=== PATIENT | male | born 1935 | race Caucasian/White ===

== ENCOUNTER 2020-01-31 00:03 | Outpatient (CLI) | payer MEDICARE, SELFPAY ==
[2020-01-31 18:02] LABS: SARS-CoV-2 RNA PCR Negative
== END 2020-01-31 00:04 | disposition home or self-care (01) ==
LOC: ANHCOVIDDT 00:03
PROVIDERS: PCP Internal Medicine; Visit Provider Internal Medicine Gastroenterology
DX: Z01.812 Encounter for preprocedural laboratory examination (principal); Z20.828 Contact with and (suspected) exposure to other viral communicable diseases
CPT/HCPCS: 87635; C9803; U0003

== ENCOUNTER 2020-02-03 01:34 | Day surgery (SDC) | payer MEDICARE, SELFPAY ==
[2020-01-24 14:18] VITALS: BMI 63.2
[2020-02-03 08:05] VITALS: BP 149/101; PULSE 85; RESP 18; TEMP 36.7; O2SAT 97
[2020-02-03] MEDS: LACTATED RINGERS 1,000 ML 150 ML IV CONT (08:30)
--- NOTE | 2020-02-03 08:31 | WPDGICN ---
Assessment and Plan Assessment and plan (1) Epigastric abdominal pain: Code(s): R10.13 - Epigastric pain Status: Acute Assessment and Plan: Patient complains of epigastric pain. He does have a distant history of peptic ulcer disease symptoms have currently been poorly responsive to antacids. Plan is for EGD to assess more thoroughly. Continue Tagamet and liquid antacids as needed for the immediate future. (2) Exocrine pancreatic insufficiency: Code(s): K86.81 - Exocrine pancreatic insufficiency Status: Acute Assessment and Plan: Patient has a clinical diagnosis of pancreatic insufficiency. Empiric trial of Creon appears to be helping. Will be continued for the immediate future. (3) Dementia: Code(s): F03.90 - Unspecified dementia without behavioral disturbance Status: Acute (4) Coronary artery disease: Code(s): I25.10 - Atherosclerotic heart disease of [place] coronary artery without angina pectoris Status: Acute GI Consult Note Consult date/time: 02/03/20 08:31 HPI: Mikey Orellana is a 84 year old male seen in evaluation at the request of Dr Vicente Reyes. Patient complains of a long history of stomach problems . Patient has a history of a bleeding ulcer treated with Tagamet 1980. He now complains of epigastric pain. He states the pain is worse after eating. He has tried Tagamet with no improvement of symptoms. Patient apparently also has been treated empirically with Creon for possible exocrine pancreatic insufficiency patient denies any diarrhea at the present time. His family history is noncontributory. He denies weight loss. He does have signs of early dementia according to his . Patient presents today for EGD to evaluate more thoroughly. He currently is on Tagamet gel use ill and does note some improvement. He states Creon helps with symptoms of nausea. Review of Systems Review of Systems: All systems reviewed & are unremarkable except as noted in HPI and below PMFSH Past Medical History Medical History Acute [place] Coronary artery disease CVA (cerebral vascular accident) Dementia Exocrine pancreatic insufficiency Glaucoma Hernia Hypertension PUD (peptic ulcer disease) SVT (supraventricular tachycardia) Surgical History Surgical History H/O eye surgery H/O left inguinal hernia repair S/P ablation of ventricular arrhythmia S/P coronary artery stent placement Social History Social History Smoking status: Former smoker Second hand tobacco smoke exposure: No Smoking end date: 05/08/1957 Alcohol intake: never Substance use: never Living arrangements: with family Gender identity (if verbalized by the patient): Male Spiritual care concerns: No Agree to blood products: Yes Meds Home Medications and Allergies Home Medications Medication Instructions Recorded Confirmed Type aspirin 81 mg tablet,delayed 81 mg PO DAILY #90 tablet 03/21/19 02/03/20 Rx release nitroglycerin 0.4 mg sublingual 0.4 mg SUBLINGUAL Q5M PRN #10 03/21/19 01/24/20 Rx tablet tablet timolol 0.25 % eye drops 1 drop EACH EYE Q12H #5 ml 03/21/19 01/24/20 Rx atorvastatin 80 mg PO HS 03/29/19 01/24/20 History calcium polycarbophil [FiberCon] 1,250 mg PO BID #120 tablet 03/29/19 01/24/20 Rx lisinopril 5 mg tablet 5 mg PO DAILY #90 tablet 08/12/19 01/24/20 Rx cimetidine 200 mg tablet 200 mg PO QID 12/31/19 01/24/20 History [id number] See Rx Instructions PO .COMPLEX 01/02/20 01/24/20 Rx 36,000-114,000-180,000 unit #750 cap capsule,delay rel carvedilol 12.5 mg tablet 12.5 mg PO Q12H #180 tablet 01/14/20 01/24/20 Rx Allergies Allergy/AdvReac Type Severity Reaction Status Date / Time No Known Allergies Allergy Verified 01/24/20 14:14 Vital Signs Vital Sign
--- NOTE | 2020-02-03 08:37 | WPDANESEPPF ---
Anes - Initial Pre Proc Eval Procedure: Operation Date: 02/03/20 09:00 Proposed Procedures p Esophagogastroduodenoscopy - Emir Armenta MD Date/Time: 02/03/20 08:37 Surgeon: Emir Armenta MD Pre Op Diagnosis: Epigastric Pain Patient Data Age: 84 Gender: M Height: 5 ft 10 in Weight: 91.8 kg Last Vital Signs Temp 36.7 C 02/03/20 08:05 Pulse 85 02/03/20 08:05 Resp 18 02/03/20 08:05 BP 149/101 H 02/03/20 08:05 Pulse Ox 97 02/03/20 08:05 Allergies Allergy/AdvReac Type Severity Reaction Status Date / Time No Known Allergies Allergy Verified 01/24/20 14:14 Home Medications Medication Instructions Recorded Confirmed Type aspirin 81 mg tablet,delayed 81 mg PO DAILY #90 tablet 03/21/19 02/03/20 Rx release nitroglycerin 0.4 mg sublingual 0.4 mg SUBLINGUAL Q5M PRN #10 03/21/19 01/24/20 Rx tablet tablet timolol 0.25 % eye drops 1 drop EACH EYE Q12H #5 ml 03/21/19 01/24/20 Rx atorvastatin 80 mg PO HS 03/29/19 01/24/20 History calcium polycarbophil [FiberCon] 1,250 mg PO BID #120 tablet 03/29/19 01/24/20 Rx lisinopril 5 mg tablet 5 mg PO DAILY #90 tablet 08/12/19 01/24/20 Rx cimetidine 200 mg tablet 200 mg PO QID 12/31/19 01/24/20 History [id number] See Rx Instructions PO .COMPLEX 01/02/20 01/24/20 Rx 36,000-114,000-180,000 unit #750 cap capsule,delay rel carvedilol 12.5 mg tablet 12.5 mg PO Q12H #180 tablet 01/14/20 01/24/20 Rx Patient hx anesthesia problems: none Family hx anesthesia problems: none PMFSH Past Medical History Medical History Acute [place] Coronary artery disease CVA (cerebral vascular accident) Dementia Exocrine pancreatic insufficiency Glaucoma Hernia Hypertension PUD (peptic ulcer disease) SVT (supraventricular tachycardia) Surgical History Surgical History H/O eye surgery H/O left inguinal hernia repair S/P ablation of ventricular arrhythmia S/P coronary artery stent placement Family History Family History Father Unknown family medical history Mother Unknown family medical history Social History Social History Smoking status: Former smoker Second hand tobacco smoke exposure: No Smoking end date: 05/08/1957 Alcohol intake: never Substance use: never Living arrangements: with family Gender identity (if verbalized by the patient): Male Spiritual care concerns: No Agree to blood products: Yes Anes - Eval Final PreProcedure Day of Procedure 02/03/20 08:37 Patient weight: overweight Heart: regular rate and rhythm Lungs: decreased breath sounds Airway: Mallampati scale class II Neurological: other (alert) Last oral intake: >/= 8 hours ASA classification: III Emergent: no Anesthetic plan: proceed Anesthesia type and monitoring: general GIVS and standard monitoring Informed Consent: The patient's anesthetic plan and its attendant risks and benefits were discussed with the patient/family/POA. Questions were solicited and answers provided to the satisfaction of the patient/family/POA.
[2020-02-03 09:24] VITALS: BP 132/69; PULSE 81; RESP 21; O2SAT 98
[2020-02-03 09:34] VITALS: BP 108/64; PULSE 77; RESP 22; O2SAT 98
[2020-02-03 09:44] VITALS: BP 144/86; PULSE 76; RESP 17; O2SAT 99
== END 2020-02-03 09:58 | disposition home or self-care (01) ==
PROVIDERS: PCP Internal Medicine; Visit Provider Internal Medicine Gastroenterology
PROC: 0DJ08ZZ Inspection of Upper Intestinal Tract, Via Natural or Artificial Opening Endoscopic (ICD-10-PCS; CPT 43235; principal; 2020-02-03 09:00)
DX: R10.13 Epigastric pain (principal); K86.81 Exocrine pancreatic insufficiency; I25.10 Atherosclerotic heart disease of native coronary artery without angina pectoris; F03.90 Unspecified dementia, unspecified severity, without behavioral disturbance, psychotic disturbance, mood disturbance, and anxiety; I10 Essential (primary) hypertension; Z87.891 Personal history of nicotine dependence
CPT/HCPCS: 43239; 87081; J2704; J7120

== ENCOUNTER 2023-05-09 14:14 | Emergency (ER) | payer MEDICARE, SELFPAY ==
--- NOTE | 2023-05-09 14:51 | ED.GENADULT ---
HPI - General Adult General Chief complaint: Urogenital-Male Stated complaint: covid +/uti symptoms Time Seen by Provider: 05/09/23 14:51 Source: patient, RN notes reviewed and old records reviewed Mode of arrival: ambulatory Limitations: no limitations History of Present Illness HPI narrative: 87-year-old male presents to the [facility] with UTI symptoms. Patient family reports that he tested positive at home for COVID-19, called primary care provider. States since he has been coughing yesterday he has been incontinent of urine, increased weakness, fatigue. States he has decreased sight but normally shuffles around. Was unable to get himself out of the chair Patient tested positive yesterday for COVID-19. Patient has not had a creatinine done at [facility] since 2019, unable to view due to primary care provider at an outside facility History is given by , patient and daughter Daughter states that they gave him a ?left over antibiotic from a previous UTI. Unknown antibiotic Onset (ago): day(s) (1) Related Data Home Medications Medication Instructions Recorded Confirmed cimetidine 200 mg tablet (Tagamet 200 mg PO QID 12/31/19 05/09/23 HB) Allergies Allergy/AdvReac Type Severity Reaction Status Date / Time No Known Allergies Allergy Verified 05/09/23 14:33 Review of Systems Review of Systems: All systems reviewed & are unremarkable except as noted in HPI and below Constitutional: Constitutional: Reports as per HPI, Reports body ache(s), Reports fatigue, Reports fever(s) and Reports headache(s) Eyes: Eyes: Reports no additional eye complaints ENT: Reports system reviewed and no additional complaints, except as documented Cardiovascular: Cardiovascular: Reports no additional cardiovascular complaints, Denies chest pain and Denies dyspnea Respiratory: Respiratory: Reports no additional respiratory complaints, Denies chest congestion, Denies cough and Denies dyspnea Gastrointestinal: Gastrointestinal: Reports no additional gastrointestinal complaints, Denies abdominal pain, Denies nausea and Denies vomiting Genitourinary: Genitourinary: Reports as per HPI, Reports urinary frequency and Reports urinary incontinence Musculoskeletal: Musculoskeletal: Reports no additional musculoskeletal complaints Integumentary/Breasts: Skin/Breast: Reports system reviewed and no additional complaints, except as docu Neurologic: Reports system reviewed and no additional complaints, except as documented Psychiatric: Psychiatric: Reports no additional psychiatric complaints Allergic/Immunologic: Allergic/Immunologic: Reports no additional allergic/immunologic complaints PMFSH Past Medical History Medical History (Updated 05/09/23 @ 21:03 by Laverne Ma APRN) Acute [place] Coronary artery disease CVA (cerebral vascular accident) Dementia Exocrine pancreatic insufficiency Glaucoma Hernia Hypertension PUD (peptic ulcer disease) SVT (supraventricular tachycardia) Surgical History Surgical History H/O eye surgery H/O left inguinal hernia repair S/P ablation of ventricular arrhythmia S/P coronary artery stent placement Family History Family History Father Unknown family medical history Mother Unknown family medical history Social History Social History Smoking status: Former smoker Second hand tobacco smoke exposure: No Smoking end date: 05/08/1957 Alcohol intake: never Substance use: never Living arrangements: with family Gender identity (if verbalized by the patient): Male Spiritual care concerns: No Agree to blood products: Yes Comments At the time of my signature, I reviewed and agree with the nursing past medical, surgical, social, and family history. There is no relevant family history pertinent to
[2023-05-09 14:55] VITALS: BP 115/63; PULSE 107; RESP 18; TEMP 37.5; O2SAT 100
== END 2023-05-09 15:20 | disposition left against medical advice (07) ==
PROVIDERS: Emergency Provider Nurse Practitioner; PCP Family Medicine
DX: R53.83 Other fatigue (principal); R32 Unspecified urinary incontinence; I25.10 Atherosclerotic heart disease of native coronary artery without angina pectoris; I10 Essential (primary) hypertension; F03.90 Unspecified dementia, unspecified severity, without behavioral disturbance, psychotic disturbance, mood disturbance, and anxiety; I25.2 Old myocardial infarction; Z79.899 Other long term (current) drug therapy; Z86.73 Personal history of transient ischemic attack (TIA), and cerebral infarction without residual deficits; Z87.891 Personal history of nicotine dependence
CPT/HCPCS: 81003; 87077; 87086; 87186; 99213; G0463